=== PATIENT | female | born 1990 | race Caucasian/White ===

== ENCOUNTER 2023-10-19 17:11 | Emergency (ER) | payer OTHER, SELFPAY ==
--- NOTE | ~2023-10-19 | XR_ITS ---
EXAM: XR finger 3rd RT min 2V DATE: 10/19/2023 17:36 HISTORY: closed finger in door . COMPARISON: None available. FINDINGS: Normal mineralization. No fracture or dislocation. No lytic or blastic lesion. Joint space s are maintained. No erosion or periosteal change. Soft tissues within normal limits. IMPRESSION: No acute osseous finding in the right third digit. Reviewed, dictated and finalized at location K.
[2023-10-19 17:14] VITALS: BP 148/80; PULSE 95; RESP 20; TEMP 37.4; O2SAT 98
--- NOTE | 2023-10-19 17:22 | ED_ITS ---
HPI - General Adult General Chief complaint: Extremity Injury, Upper Stated complaint: finger inj Source: patient, RN notes reviewed and old records reviewed Mode of arrival: ambulatory Limitations: no limitations History of Present Illness HPI narrative: 33-year-old female presents to [facility] with complaint of right 3rd finger pain after shutting finger in closet door about 2-3 hours ago. Related Data Home Medications Medication Instructions Recorded Confirmed bupropion HCl 300 mg 24 hr tablet, mg PO 10/19/23 extended release etonogestrel 0.12 mg-ethinyl vag ring vaginal 10/19/23 estradiol 0.015 mg/24 hr vaginal ring (Haloette) Allergies Allergy/AdvReac Type Severity Reaction Status Date / Time No Known Allergies Allergy Verified 10/19/23 17:24 Review of Systems Constitutional: Constitutional: Reports no additional constitutional complaints, Denies body ache(s), Denies chills, Denies fatigue, Denies fever(s) and Denies headache(s) Eyes: Eyes: Reports no additional eye complaints and Denies blurry vision ENT: Reports system reviewed and no additional complaints, except as documented, Denies vertigo, Denies dizziness, Denies ear discharge, Denies otalgia, Denies facial pain, Denies headache(s), Denies nasal congestion, Denies nasal discharge, Denies sinus pain, Denies sinus pressure and Denies sore throat Cardiovascular: Cardiovascular: Reports no additional cardiovascular complaints, Denies chest pain, Denies chest pain at rest, Denies rapid heart rate and Denies dyspnea Respiratory: Respiratory: Reports no additional respiratory complaints, Denies chest congestion, Denies cough, Denies pain on inspiration, Denies pain with cough and Denies dyspnea Gastrointestinal: Gastrointestinal: Denies abdominal pain, Denies diarrhea, Denies nausea and Denies vomiting Musculoskeletal: Musculoskeletal: Reports as per HPI Comments: right 3rd finger pain distal joint Integumentary/Breasts: Skin/Breast: Denies rash Neurologic: Reports system reviewed and no additional complaints, except as documented, Denies vertigo, Denies dizziness and Denies headache(s) Endocrine: Endocrine: Denies fatigue PMFSH Comments At the time of my signature, I reviewed and agree with the nursing past medical, surgical, social, and family history. There is no relevant family history pertinent to the patient complaint. Exam Const: General: cooperative, healthy appearing, no acute distress and well nourished Nutritional Appearance: well nourished Orientation/consciousness: patient oriented x3 Limitations: no limitations HENMT: Head: normal to inspection and normocephalic Ears: external ears normal Face/Nose/Sinus: normal facial exam Face and sinus: normal facial exam Mouth: Yes Normal oral and palatal mucosa present, Yes oropharynx normal and Yes moist mucous membranes Eyes: General: appearance normal, both eyes and all related structures Sclera: sclerae normal Pupils: Equal, round and reactive pupils present Resp: Effort & Inspection: normal respiratory effort, able to speak in complete sentences, no audible wheezes, no cough, no respiratory distress and no retractions Skin: General skin exam: normal color and no rashes or lesions noted Neuro: General: patient oriented x3 Cranial nerves: Yes Equal, round and reactive pupils present Extrem: Right upper extremity: Extremity exam: right hand normal capillary refill, neuromotor exam normal, tenderness of the 3rd digit, swelling of the 3rd digit and ecchymosis of the 3rd digit Psych: Appearance: grossly normal Mental Status: mental status grossly normal Speech and movement: Normal speech and movement present Affect: normal affect Course Course Emergency Course: Patient is aware of diagnosis, understands and agrees to treatment plan.? Anticipatory guidance given.? Patient agrees to follow-up as directed and is aware of reasons to seek care at the emergency department. Some parts of this dictation were generated by voice recognition software and may contain typographical and/or grammatical inaccuracies. Level of Care: Express Care Visit Vital Signs Vital signs: Reviewed Medical Decision Making MDM Narrative Medical decision making narrative: patient with right finger pain with bruising after smashing finger in closet door. X-ray negative. will treat as contusion. Patient's x-ray showed Patient resting comfortably without signs or symptoms of acute distress, nontoxic appearing, vital signs stable. patient appropriate for discharge home and outpatient care, with instructions on close monitoring, close follow-up, and when to seek emergency care. Discharge instructions reviewed with patient, as well as provided in writing per nursing staff. The instructions also include specific and strict return/GO TO THE ER as well as f/u information. All questions have been answered, and the patient deny any further questions with discharge and discharge plan. Differential Diagnosis Differential Diagnosis: smash injury, contusion, fracture Medical Records Medical records reviewed: Yes I reviewed the external patient's medical records. Vital Signs Vital Signs: reviewed Lab Data Lab results reviewed: Yes I reviewed the patient's lab results. Imaging Data Attestation: I personally reviewed and interpreted this imaging study as follows: Radiologist's impression: EXAM:? XR finger 3rd RT min 2V DATE: 10/19/2023 17:36 HISTORY: closed finger in door . COMPARISON:? None available. FINDINGS:? Normal mineralization. No fracture or dislocation. No lytic or blastic lesion. Joint spaces are maintained. No erosion or periosteal change. Soft tissues within normal limits. IMPRESSION: No acute osseous finding in the right third di Discharge Plan Discharge Clinical Impression: Contusion of finger of right hand Qualifiers: Encounter type: initial encounter Finger: middle finger Damage to nail status: without damage Qualified Code(s): S60.031A - Contusion of right middle finger without damage to nail, initial encounter Patient Disposition: Home, Self-Care Condition: Stable Instructions: Contusion in Adults (ED) Additional Instructions: Rest Ice area for about 15-20 minutes every 2-3 hours Elevate Take OTC ibuprofen as directed for pain Follow up with your PCP in 7 days or as needed. Go to emergency room for worsening of conditions Patient Language: Uzbek Prescriptions: No Action etonogestrel-ethinyl estradiol [Haloette] 0.12-0.015 mg/24 hr ring VAGINAL bupropion HCl 300 mg tablet extended release 24 hr PO Follow-up/Referrals: Yifan,MD Ulysses [Primary Care Provider] - 1 Week ( express care follow-up) Time of Disposition: 17:39
== END 2023-10-19 17:55 | disposition home or self-care (01) ==
PROVIDERS: Emergency Provider Registered Nurse; PCP Internal Medicine Infectious Disease
DX: S60.031A Contusion of right middle finger without damage to nail, initial encounter (principal); X58.XXXA Exposure to other specified factors, initial encounter
CPT/HCPCS: 29130; 73140; 99213; G0463

== ENCOUNTER 2024-09-01 10:13 | Emergency (ER) | payer OTHER, SELFPAY ==
[2024-09-01 10:22] VITALS: BP 130/69; PULSE 85; RESP 20; TEMP 37.1; O2SAT 100
--- NOTE | 2024-09-01 10:48 | ED.URI ---
HPI - URI/Sore Throat General Chief Complaint: Upper Respiratory Infection Stated Complaint: sinus infection/bronchitis Time Seen by Provider: 09/01/24 10:40 Source: patient, RN notes reviewed and old records reviewed Mode of arrival: ambulatory Limitations: no limitations History of Present Illness HPI Narrative: 34-year-old female who presents to [facility] with complaints of 2 week duration of cough, nasal congestion, sore throat, and some ear pain. Patient reports that she has taken DayQuil and some NyQuil, Mucinex and has used her Albuterol inhaler she has for cat allergy. Patient reports no body aches or any recent fevers, chills or sweats noted. MD elicited complaint: cough, sore throat, rhinorrhea, nasal congestion and other (ear pain) Onset (ago): week(s) (2) Severity: moderate Treatments prior to arrival: other (mucinex) Related Data Home Medications ?Medication ?Instructions ?Recorded ?Confirmed ?Last Taken ?Type bupropion HCl 300 mg 24 hr tablet, mg PO 10/19/23 Unknown History extended release etonogestrel 0.12 mg-ethinyl vag ring vaginal 10/19/23 Unknown History estradiol 0.015 mg/24 hr vaginal ring (Haloette) Allergies Allergy/AdvReac Type Severity Reaction Status Date / Time No Known Allergies Allergy Verified 09/01/24 10:34 Review of Systems Review of Systems: CONSTITUTIONAL:Reports malaise,no chills, sweats, or fever. EYES: Denies visual changes, redness, or discharge. ENT: Reports rhinorrhea, congestion, sinus pain, otalgia and sore throat. CARDIOVASCULAR: Denies chest pain, palpitations, or edema. RESPIRATORY: Reports cough.? Denies dyspnea. GASTROINTESTINAL: Denies abdominal pain, nausea, vomiting, diarrhea SKIN: Denies rash or itching. MUSCULOSKELETAL: Denies myalgia. NEUROLOGIC: Reports frontal headache. 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 There is no relevant family history pertinent to the presenting complaint Exam Narrative: GENERAL: Well-appearing, well-nourished, and in no acute distress. HEAD: Normocephalic EYES: PERRLA, conjunctivae clear ENT: Nares clear, turbinates edematous and erythematous, clear discharge, sinus pressure and frontal headache,. Mucous membranes moist. TM pearly martin with dull light reflex bilaterally; no tragal tenderness. Oropharynx erythematous without lesions. Tonsils not enlarged and without exudate, no drooling, no hoarseness, no trismus, uvula midline.post nasal drainage noted NECK: Supple. No lymphadenopathy CHEST: Clear to auscultation, breath sounds equal. No wheezing, rhonchi, rales, or stridor. No respiratory distress, speaks in full sentences.dry cough SAO2 100% on room air HEART: Regular rate and rhythm. No murmur heard. SKIN: Warm, dry, no rash. NEURO: Alert and oriented x3. PSYCH: Normal mood and affect Course Course Emergency Course: Patient is aware of diagnosis, understands and agrees to treatment plan.? Anticipatory guidance given.? Patient agrees to follow-up as directed and is aware of reasons to seek care at the emergency department. Portions of this record may have been created with voice recognition software Level of Care: Express Care Visit Vital Signs Vital signs: Vital Signs Temperature 37.1 C 09/01/24 10:22 Pulse Rate 85 09/01/24 10:22 Respiratory Rate 20 09/01/24 10:22 Blood Pressure 130/69 09/01/24 10:22 Pulse Oximetry 100 09/01/24 10:22 Oxygen Delivery Room Air 09/01/24 10:22 Temperature 37.1 C 09/01/24 10:22 Pulse Rate 85 09/01/24 10:22 Respiratory Rate 20 09/01/24 10:22 Blood Pressure 130/69 09/01/24 10:22 Pulse Oximetry 100 09/01/24 10:22 Oxygen Delivery Room Air 09/01/24 10:22 Reviewed MDM - URI/Sore Throat MDM Narrative Medical decision making narrative: Differential diagnosis considered: Granados virus, strep pharyngitis, allergic rhinitis, upper respiratory tract infection, sinusitis, rhinosinusitis, nasopharyngitis. viral pharyngitis, otitis media, otitis externa, pneumonia, bronchitis, viral cough syndrome, viral syndrome, and influenza.? Exam findings show no acute concerns or changes; patient is non-toxic appearing and is in no distress.? Patient is appropriate for outpatient treatment and follow-up. Differential Diagnosis Differential diagnosis: Likely upper respiratory infection, otitis media, sinusitis, viral infection, pharyngitis and other (cough) Medical Records Attestation: I reviewed the patient's medical records. Lab Data Attestation: I reviewed the patient's lab results. Critical Care Time Critical Care Time Critical Care Time: No Discharge Plan Discharge Clinical Impression: Sinusitis Qualifiers: Sinusitis location: pansinusitis Chronicity: acute Recurrence: not specified as recurrent Qualified Code(s): J01.40 - Acute pansinusitis, unspecified Patient Disposition: Home, Self-Care Condition: Stable Instructions: Antibiotic Form Additional Instructions: Increase fluids especially juices and water [id number]-wrgbygb cough and cold medicine of your choice for your symptoms Zyrtec Claritin or Precious daily and He may continue Mucinex make sure you are drinking plenty of fluids while taking this medication Recommend Delsym or Robitussin cough syrup Tylenol ibuprofen for any fever pain heat to the face 20-30 minutes 4-6 times a day for pain Salt water gargles, throat lozenges or throat sprays as desired Antibiotic as directed--finished the medication If your symptoms persist, change or worsen significantly before you can contact your personal physician then please, without delay, go to the emergency department for further evaluation. Follow-up with PCP in 7-10 days or sooner if needed Follow up with PCP soon in regards to your blood pressure which is elevated above threshold for referral. Blood pressure above 120/80 may indicate pre-hypertension.130/69 Patient Language: Maori Prescriptions: New amoxicillin-pot clavulanate 875-125 mg tablet 1 tablet PO Q12H Qty: 20 0RF Rx Instructions: Take with food recommend taking a probiotic or eating Activia yogurt while on this medication No Action etonogestrel-ethinyl estradiol [Haloette] 0.12-0.015 mg/24 hr ring VAGINAL bupropion HCl 300 mg tablet extended release 24 hr PO Follow-up/Referrals: Yifan,MD Ulysses [Primary Care Provider] - Time of Disposition: 10:57 Quality Dillon Coma Scale Eyes: Open Verbal: Oriented and Alert Motor: Follows Commands Elizabeth Coma Total Score: 15
== END 2024-09-01 11:00 | disposition home or self-care (01) ==
PROVIDERS: Emergency Provider Registered Nurse; PCP Internal Medicine Infectious Disease
DX: J01.40 Acute pansinusitis, unspecified (principal); F41.8 Other specified anxiety disorders; F90.9 Attention-deficit hyperactivity disorder, unspecified type; F17.290 Nicotine dependence, other tobacco product, uncomplicated
CPT/HCPCS: 99213; G0463

== ENCOUNTER 2024-09-16 11:38 | Emergency (ER) | payer OTHER, SELFPAY ==
[2024-09-16 11:44] VITALS: BP 146/72; PULSE 104; RESP 18; TEMP 36.8; O2SAT 99
[2024-09-16 12:14] LABS: EDSTREPNEGPOS1 Positive (Negative)
--- NOTE | 2024-09-16 12:34 | ED_ITS ---
HPI - URI/Sore Throat General Chief Complaint: Upper Respiratory Infection Stated Complaint: strep throat Time Seen by Provider: 09/16/24 11:55 Source: patient, RN notes reviewed and old records reviewed Mode of arrival: ambulatory Limitations: no limitations History of Present Illness HPI Narrative: 34 year old female presents to [facility] with complaints of sore throat which started yesterday when awoke with fever and headaches. Patient states that she just completed Augmentin for a sinus infection past Saturday but has been exposed to strep by her brother. Patient reports that she has taken some Ibuprofen for her discomfort. MD elicited complaint: fever, sore throat and other (headache) Pertinent past history: other (recent sinus infection) Onset (ago): day(s) (day 2 of symptoms) Consistency: constant Pain scale (0-10): 8 Description of mucous: clear Able to tolerate fluids by mouth: Yes Treatments prior to arrival: ibuprofen Related Data Home Medications ?Medication ?Instructions ?Recorded ?Confirmed ?Last Taken ?Type bupropion HCl 300 mg 24 hr tablet, mg PO 10/19/23 Unknown History extended release etonogestrel 0.12 mg-ethinyl vag ring vaginal 10/19/23 Unknown History estradiol 0.015 mg/24 hr vaginal ring (Haloette) Allergies Allergy/AdvReac Type Severity Reaction Status Date / Time No Known Allergies Allergy Verified 09/16/24 12:11 Review of Systems Review of Systems: CONSTITUTIONAL: Reports malaise, positive for chills, sweats, or fever. EYES: Denies visual changes, redness, or discharge. ENT: Reports rhinorrhea, congestion,no sinus pain,no otalgia and positive for sore throat. CARDIOVASCULAR: Denies chest pain, palpitations, or edema. RESPIRATORY: Reports no cough.? Denies dyspnea. GASTROINTESTINAL: Denies abdominal pain, nausea, vomiting, diarrhea SKIN: Denies rash or itching. MUSCULOSKELETAL: Denies myalgia. NEUROLOGIC: Reports some headache. 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 There is no relevant family history pertinent to the presenting complaint Exam Narrative: GENERAL: Well-appearing, well-nourished, and in no acute distress. HEAD: Normocephalic EYES: PERRLA, conjunctivae clear ENT: Nares clear, turbinates edematous and erythematous, clear discharge. Mucous membranes moist. TM pearly martin with dull light reflex bilaterally; no tragal tenderness. Oropharynx erythematous without lesions. Tonsils red swollen enlarged and without exudate, no drooling, no hoarseness, no trismus, uvula midline, painful swallowing. NECK: Supple. No lymphadenopathy CHEST: Clear to auscultation, breath sounds equal. No wheezing, rhonchi, rales, or stridor. No respiratory distress, speaks in full sentences. SAO2 99% on room air HEART: Regular rate and rhythm. No murmur heard. SKIN: Warm, dry, no rash. NEURO: Alert and oriented x3. PSYCH: Normal mood and affect Course Course Emergency Course: Patient is aware of diagnosis, understands and agrees to treatment plan.? Anticipatory guidance given.? Patient agrees to follow-up as directed and is aware of reasons to seek care at the emergency department. Portions of this record may have been created with voice recognition software Level of Care: Express Care Visit Vital Signs Vital signs: Vital Signs Temperature 36.8 C 09/16/24 11:44 Pulse Rate 104 H 09/16/24 11:44 Respiratory Rate 18 09/16/24 11:44 Blood Pressure 146/72 H 09/16/24 11:44 Pulse Oximetry 99 09/16/24 11:44 Oxygen Delivery Room Air 09/16/24 11:44 Temperature 36.8 C 09/16/24 11:44 Pulse Rate 104 H 09/16/24 11:44 Respiratory Rate 18 09/16/24 11:44 Blood Pressure 146/72 H 09/16/24 11:44 Pulse Oximetry 99 09/16/24 11:44 Oxygen Delivery Room Air 09/16/24 11:44 Reviewed MDM - URI/Sore Throat MDM Narrative Medical decision making narrative: Differential diagnosis considered: Granados virus, strep pharyngitis, allergic rhinitis, upper respiratory tract infection, sinusitis, rhinosinusitis, nasopharyngitis. viral pharyngitis, otitis media, otitis externa, pneumonia, bronchitis, viral cough syndrome, viral syndrome, and influenza.? Exam findings show no acute concerns or changes; patient is non-toxic appearing and is in no distress.? Patient is appropriate for outpatient treatment and follow-up. Differential Diagnosis Differential diagnosis: Likely upper respiratory infection, pharyngitis and other (strep pharyngitis) Medical Records Attestation: I reviewed the patient's medical records. Lab Data Attestation: I reviewed the patient's lab results. Lab results narrative: strep screen positive Labs: Lab Results 09/16/24 Range/Units 12:13 POC Grp A Strep Screen Positive (Negative) reviewed Critical Care Time Critical Care Time Critical Care Time: No Discharge Plan Discharge Clinical Impression: Strep pharyngitis Patient Disposition: Home, Self-Care Condition: Stable Instructions: Antibiotic Form, Strep Throat (ED) Additional Instructions: You tested positive for Group A strep . Take the entire course of antibiotics. Throw away your current toothbrush and begin using a new toothbrush in 48 hours in order to prevent re-infection. Sanitize all reusable water bottles . Do not share items with others. Salt water gargles may alleviate some of the throat discomfort. You can take Tylenol or ibuprofen per the package instructions for pain/fever. If your symptoms persist, change or worsen significantly before you can contact your personal physician then please, without delay, go to the emergency department for further evaluation. Follow-up with PCP in 7-10 days or sooner if needed Follow up with PCP soon in regards to your blood pressure which is elevated above threshold for referral. Blood pressure above 120/80 may indicate pre- hypertension. 146/72 Patient Language: Australian Prescriptions: New cefdinir 300 mg capsule 300 mg PO Q12H 10 Days Qty: 20 0RF Rx Instructions: take probiotics while taking this medication No Action etonogestrel-ethinyl estradiol [Haloette] 0.12-0.015 mg/24 hr ring VAGINAL bupropion HCl 300 mg tablet extended release 24 hr PO Follow-up/Referrals: Yifan,MD Ulysses [Primary Care Provider] - Time of Disposition: 12:41 Quality Elizabeth Coma Scale Eyes: Open Verbal: Oriented and Alert Motor: Follows Commands Elizabeth Coma Total Score: 15
--- OUTSIDE RECORDS SUMMARY | 2024-09-16 13:30 | XMS_ITS | Continuity of Care Document ---
Author Organization 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 [facility] [place], [place], [id number], [place]. tel:[phone] Family History Family Member Type Diagnosis Age At Onset No Information Payers Payer name Insurance type Covered constitution party ID Authoriza timarcelo(s) [employer] Plan CI [id number] Social History Type Description Quantity Date Captured Comments Sex Female Smoking Status No Information Chief Complaint And Reason For Visit No Information Reason For Referral Reason For Referral No Information History Of Present Illness Encounter Date Complaint History Of Prese nt Illness No Information Functional Status Date Functional Assessmen t No Information Instructions Date Instruction Additional Infor mation No Information Assessments Type Assessment Date No Information Patient Care Teams Name Effective Dates (start - stop) Status Members No Information
--- OUTSIDE RECORDS SUMMARY | 2024-09-16 13:30 | XMS_ITS | Continuity of Care Document ---
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 [facility] [place], [place], [id number], [place]. tel:[phone] Family History Family Member Type Diagnosis Age At Onset No Information Payers Payer name Insurance type Covered libertarian ID Authoriza timarcelo(s) [employer] Vision Plan CI [id number] Social History Type Description Quantity Date Captured [...]
--- OUTSIDE RECORDS SUMMARY | 2024-09-16 13:30 | XMS_ITS | Clinical Summary ---
Author Organization [facility] [address] Address [address] [place] [address] Phone Care Team Providers Care Reproduction Production Manager Name Role Phone Ulysses Saha MD Unavailable [phone] Ulysses Saha MD Primary Care Provider [phone] Allergies Active Allergy Reactions Criticality Noted Date Comments Latex Other (See comments) Low 04/02/2019 Vaginitis/UTI Vaginitis/UTI Medications etonogestreL-ethi nyl estradioL (NUVARING, ELURYNG) 0.12-0.015 mg/24 hr vaginal ringIndications:E ncounter for surveillance of vaginal ring hormonal contraceptive device Insert vaginally and leave in place for 3 consecutive weeks, then remove for 1 week. 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 UPTODATE LABS WERE REVIEWED FLY CHRONIC AND STABLE SKIN ASSESSMENT NO SUSPICIOUS LESIONS BMI OF 40 CHRONIC / DIETARY COUNSELLING NO SIBSTANCE 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 Mild intermittent asthma without complication Assessment & Plan (10/28/2023 1:38 PM CDT): WELL CONTROLLED WITH ALBUTEROL PRN Hyperglycemia 10/25/2023 Assessment & Plan (10/28/2023 1:38 PM CDT): HBAIC IN SIX MONTH DISCUSSED LOW CARB DIET HYPERGLYCEMIA NOT CONTROLLED HENCE HBAIC NEXT VISIT Severe obesity (BMI >= 40) 03/26/2023 Generalized anxiety disorder 03/26/2023 Assessment & Plan (10/25/2023 3:29 PM CDT): STABLE DOING OK ON WELLBUTRIN CONTINUE CURRENT MEDS Encounters Date Type Department Care Team Description 08/19/2024 Results Follow-Up [facility] [address] [place] [address] Sera Aranda MD 08/17/2024 3:40 PM FILM WAXER [facility] [address] [place] [address] Screening examination for venereal disease 08/17/2024 3:30 PM FILM WAXER - 08/17/2024 11:59 PM FILM WAXER Hospital Encounter [address] [address] Screening examination for venereal disease Discharge Disposition: Discharge to home or self care 08/17/2024 2:45 PM FILM WAXER Office Visit [facility] [address] [place] [address] Sera Aranda MD Screening examination for venereal disease (Primary Dx) from Last 3 Months Immunizations Immunization Administration Dates Next Due DT 02/06/2002 DTaP 02/06/1993, 0,1988,05/21,1988 Hep A, Ped Unspecified 11/21/2005 Hep B, Adolescent or Pediatric 10/11/1998,1997,1988 HiB 02/10/1990 Influenza, Quadrivalent, Spl it, Preservative Free, Intramuscular 04/25/2020 Influenza, Unspecified 04/17/2024(Deferr ed: Patient Refused),04/22/2023(Deferred: Patient Refused),04/22/2023(Deferred: Patient Refused) MMR 02/06/1993,04/26/1989 Meningococcal Polysaccharide (Menomune) 02/07/2011 OPV 02/06/1993, 0,1988,05/21,1988 Td, adsorbed 02/06/2002 Tdap 05/03/2022,02/14/2017,11/21/2005 Medical History Medical History Date Comments Scoliosis Slipped rib syndrome Seasonal affective disorder Adhd Generalized anxiety disorder Family History Medical History Relation Name Comments Breast cancer Maternal Great-Grandmother Uterine cancer Mother's Sister ovarian v. uterine (?) Relation Name Status Comments Maternal Great-Grandmother Mother's Sister Social History Tobacco Use Types Packs/Day Years Used Date Smoking Tobacco: Former Cigarettes 0 11/2017 - 05/2018 Vaping Smokeless Tobacco: Never Tobacco Cessation:Counseling Given: Not Answered PHQ-2 Answer Date Recorded PHQ-2 Total Score (If total score is 3 or more points, staff should administer the PHQ-9) 0 04/17/2024 Comments No Sex and Gender Information Value Date Recorded Sex Assigned at Not on file Legal Sex Female 1:44 AM FILM WAXER Gender Identity Female 07/06/2024 10:02 AM FILM WAXER Sexual Orientation Not on file Occupation Industry Job Start Date Job End Date Not on file Not on file Not on file Not on file Obstetrics History Para Term AB IAB SAB Ectopic Multiple Livin g Live Births 0 0 0 0 0 0 0 0 0 0 0 Last Filed Vital Signs Vital Sign Reading Time Taken Comments Blood Pressure 130/80 08/17/2024 2:50 PM FILM WAXER Pulse 73 04/17/2024 2:30 PM CDT Temperature 36.3 C (97.3 F) 04/17/2024 2:30 PM CDT Respiratory Rate 16 04/17/2024 2:30 PM CDT Oxygen Saturation 98% 04/17/2024 2:30 PM CDT Inhaled Oxygen Concentration - - Weight 108 kg (238 lb) 08/17/2024 2:50 PM FILM WAXER Height 162.6 cm (5' 4 ) 04/17/2024 2:30 PM CDT Body Mass Index 40.85 04/17/2024 2:30 PM CDT Plan of Treatment Health Maintenance Due Date Last Done Comments Varicella Vaccines (1 of 2 - 13+ 2-dose series) 01/23/2001 Pneumococcal vaccine <65 (1 of 2 - PCV) 01/23/2007 Covid-19 Vaccine (3 - season) 2024 12/16/2020, 11/25/2020 Influenza Vaccine (#1) 2024 04/25/2020 Cervical Cancer Screening 03/20/2024 03/20/2023, Depression Screening 04/17/2025 04/17/2024, 2023, 2023 Regular Well Visit/Exam 18-64 04/17/2025 04/17/2024, 04/01/2024, 03/20/2023, Additional history exists DTaP/Tdap/Td Vaccine (11 - Td or Tdap) 05/03/2032 05/03/2022, 02/14/2017, 11/21/2005, Additional history exists Hepatitis B Screening Completed 10/11/1998 , 03/28/1998, 1988 Hepatitis C Screening Completed 08/17/2024 , 04/01/2024, 2023 HPV Vaccines Aged Out No longer eligi ble based on patient's age to complete this topic Procedures Procedure Name Priority Date/Time Associated Diagnosis Comments VAGINITIS PANEL Routine 08/17/2024 3:30 PM FILM WAXER Screening examination for venereal disease N. GONORRHOEAE/C. TRACHOMATIS AMPLIFICATION Routine 08/17/2024 3:30 PM FILM WAXER Screening examination for venereal disease HEPATITIS B SURFACE ANTIGEN Routine 08/17/2024 3:14 PM FILM WAXER Screening examination for venereal disease HEPATITIS C ANTIBODY Routine 08/17/2024 3:14 PM FILM WAXER Screening examination for venereal disease RPR Routine 08/17/2024 3:14 PM FILM WAXER Screening examination for venereal disease HIV 1/2 ANTIBODY PLUS P24 ANTIGEN Routine 08/17/2024 3:14 PM FILM WAXER Screening examination for venereal disease HIGH RISK HPV DNA DETECTION WITH GENOTYPING Routine 03/20/2023 3:36 PM CDT Screening for malignant neoplasm of the cervix from Last 3 Months or Most Recently Relevant to Health Maintenance Results * N. gonorrhoeae/C. trachomatis Amplification Endocervical (08/17/2024 3:30 PM FILM WAXER) Pathologist [facility] C. trachomatis Not Detected [facility] Comment:Testing performed by : [facility], [address] [place] [address]., [id number] N. gonorrhoeae Not Detected AMANDA LEIVA Comment: Interpretive Data This assay detects Chlamydia trachomatis and Neisseria gonorrhoeae by nucleic acid amplification testing (NAAT). This assay has been cleared by the [place] Food and Drug administration. The performance characteristics of this test have been verified by the [facility] Molecular Infectious Disease laboratory. The performance characteristics of this test have not been evaluated in individuals less than 14 years of age. Current Interpretive Data was last revised on 2023. Testing performed by: [facility], [address] [place] [address]., [id number] Endocervical (None) 08/17/19 3:30 PM FILM WAXER 08/18/2024 10:48 AM FILM WAXER Sera Aranda MD LAB MICROBIOLOGY - [facility] ORDERABLES Final Result AMANDA LEIVA [address] Department [place] [address] [facility] * Vaginitis panel Vaginal (08/17/2024 3:30 PM FILM WAXER) Pathologist [facility] Shara DNA probe Not Detected Not Detected Comment:Testing performed by : [facility], [address] [place] [address]., [id number] Gardnerella DNA probe Not Detected Not Detected AMANDA LEIVA Comment:Testing performed by : [facility], [address] [place] [address]., [id number] Trichomonas DNA probe Not Detected Not Detected AMANDA LEIVA Comment: Interpretive Data Testing performed by [facility] via Affirm VPIII Microbial Identification Test, a DNA probe test for use in the detection and identification of Shara species, Gardnerella vaginalis and Trichomonas vaginalis nucleic acid in vaginal fluid specimens from patients with symptoms of vaginitis/vaginosis. Negative results for these tests suggest the patient does not have candidiasis, bacterial vaginosis and/or trichomoniasis when consistent with clinical signs and symptoms. Current interpretive data was last revised on 2020. Testing performed by: [facility], [address] [place] [address]., [id number] Vaginal 08/17/2024 3:30 PM FILM WAXER 08/18/2024 1:04 PM FILM WAXER Sera Aranda MD LAB MICROBIOLOGY - [facility] ORDERABLES Final Result AMANDA [address] Department [place] [address] * HIV 1/2 Antibody plus p24 Antigen Blood (08/17/2024 3:14 PM FILM WAXER) [facility] HIV 1/2 ab + p24 ag Nonreactive Nonreactive Comment: Nonreactive for HIV-1 antigen and HIV-1/HIV-2 antibodies. No laboratory evidence of HIV infection. If acute HIV infection is suspected, consider testing for HIV-1 RNA. Testing performed by: [facility], [address] [place] [address]., [id number] Blood 08/17/2024 3:14 PM FILM WAXER 08/17/2024 6:57 PM FILM WAXER Sera Aranda MD LAB MICROBIOLOGY - [facility] ORDERABLES Final Result Performing Organization Address City/[facility] Co de Phone Number AMANDA LEIVA [address] [place] [address] * Hepatitis C antibody Blood (08/17/2024 3:14 PM FILM WAXER) [facility] Hep C Ab Nonreactive Nonreactive Comment: Interpretive Data Nonreactive: Antibodies to HCV not detected. Does NOT exclude the possibility of recent exposure to HCV. Equivocal: Equivocal for HCV antibodies. Supplemental molecular testing will be automatically performed to determine infection status in accordance with current CDC screening recommendations. Reactive: Positive for HCV antibodies. This may represent current or past HCV infection. Supplemental molecular testing will be automatically performed to determine current infection status in accordance with current CDC screening recommendations. Interpretive data was last revised on 2019. Testing performed by: [address] [address] Blood 08/17/2024 3:14 PM FILM WAXER 08/17/2024 6:57 PM FILM WAXER us Sera Aranda MD LAB MICROBIOLOGY - [facility] ORDERABLES Final Result Performing Organization Address [facility] Co de Phone Number AMANDA LEIVA [phone] [address] [facility] [place] [address] * RPR Blood (08/17/2024 3:14 PM FILM WAXER) [facility] RPR Nonreactive Nonreactive Comment:Testing performed by : [facility], [address] [place] [address]., [id number] Blood 08/17/2024 3:14 PM FILM WAXER 08/17/2024 6:57 PM FILM WAXER Sera Aranda MD LAB MICROBIOLOGY - [facility]ERAL ORDERABLES Final Result Performing Organization Address City/[facility]/ZIP Co de Phone Number AMANDA LEIVA [address] [place] [address] * Hepatitis B Surface Antigen Blood (08/17/2024 3:14 PM FILM WAXER) [facility] HepBsAg Nonreactive Nonreactive Comment:Testing performed by : [facility], [address] [place]., [address] Blood 08/17/2024 3:14 PM FILM WAXER 08/17/2024 6:57 PM FILM WAXER Sera Aranda MD LAB MICROBIOLOGY - NERAL ORDERABLES Final Result [place] [address] [facility] Department of Laboratories [place], [place] [id number] * High Risk HPV DNA Detection with Genotyping (Molecular component) (03/20/2023 3:36 PM CDT) [facility] HPV HR 16 Not Detected Not Detected AMANDA Comment:Testing performed by : [facility], [address] [place]., [address] HPV HR 18 Not Detected Not Detected AMANDA Comment:Testing performed by : [facility], [address] [place]., [address] HPV HR Non 16/18 Not Detected Not Detected AMANDA Comment: Interpretive Data Nucleic acid amplification for detection of high-risk Human Papilloma virus (HPV) is performed by the Citlali Dwain 6800 HPV test. This assay specifically detects HPV-16 and HPV-18 genotypes. The following HPV genotypes are detected as high-risk HPV: HPV-31, 33, 35, ,39, 45, 51, 52, 56, 58, 59, 66, and 68. This assay has been approved by the [place] Food and Drug Administration for detection of HPV in cervical specimens collected by a physician using an endocervical brush/spatula or cervical broom and placed in the ThinPrep Pap Test PreservCyt collection containers. The performance characteristics of this test have been verified by the [facility] Molecular Infectious Disease laboratory. Correlate with separately reported cytology results, as applicable. Interpretive data last revised 22 Testing performed by: [facility], [address] [place]., [address] Endocervical 03/20/2023 3:36 PM CDT 03/21/2023 3:36 PM CDT Heraclio PATEL CH - 03/22/2023 2:45 AM CDT Clinical history and diagnosis->DX Z12.4 Testing type->Screening Last menstrual period (date if known)->02/27/23 Previous negative PAP?->Yes Sera Aranda MD LAB BODY FLUIDS AND S TOOLS ORDERABLES Final Result AMANDA [address] Department [place] [address] from Last 3 Months or Most Recently Relevant to Health Maintenance Insurance [employer] Care Teams Reproduction Production Manager Relationship Specialty Start Date End Date Ulysses Saha MD [address] [place] [id number] PCP - General Internal Medicine 01/24/23 Ulysses Saha MD [address] [place] [id number] 03/10/22
--- OUTSIDE RECORDS SUMMARY | 2024-09-16 13:30 | XMS_ITS | Referral Summary ---
Author Organization [facility] [place] [address] [place] [address] Phone Care Team Providers Care Privacy Director Name Role Phone Ulysses Saha MD Unavailable [phone] Ulysses Saha MD Primary Care Provider [phone]- [phone] Encounters Date Type Department Care Team Description 08/19/2024 Results Follow-Up [facility] [address] [place] [address] Sera Aranda MD 08/17/2024 3:30 PM POLYGRAPH TECHNICIAN - 08/17/2024 11:59 PM POLYGRAPH TECHNICIAN [place] [address] Screening examination for venereal disease Discharge Disposition: Discharge to home or self care 08/17/2024 3:40 PM POLYGRAPH TECHNICIAN Lab [facility] [address] [place] [id number] Screening examination for venereal disease 08/17/2024 2:45 PM POLYGRAPH TECHNICIAN Office Visit [facility] [address] [place] [address] Sera Aranda MD Screening examination for venereal disease (Primary Dx) from Last 3 Months Allergies Active Allergy Reactions Criticality Noted Date [...] WERE REVIEWED 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 UPTODATE LABS WERE REVIEWED FLY CHRONIC AND [...] DOING OK ON WELLBUTRIN CONTINUE CURRENT MEDS Immunizations Immunization Administration Dates Next Due DT 02/06/2002 DTaP 02/06/1993, 0,1988,05/21,1988 Hep A, Ped Unspecified 11/21/2005 Hep B, Adolescent or Pediatric 10/11/1998,1997,1988 HiB 02/10/1990 Influenza, Quadrivalent, Spl it, Preservative Free, Intramuscular 04/25/2020 Influenza, Unspecified 04/17/2024(Deferr ed: Patient Refused),04/22/2023(Deferred: Patient Refused),04/22/2023(Deferred: Patient Refused) MMR 02/06/1993,04/26/1989 Meningococcal Polysaccharide (Menomune) 02/07/2011 OPV 02/06/1993, 0,1988,05/21,1988 Td, adsorbed 02/06/2002 Tdap 05/03/2022,02/14/2017,11/21/2005 Social History Tobacco Use Types Packs/Day Years [...] on file Legal Sex Female 1:44 AM POLYGRAPH TECHNICIAN Gender Identity Female 07/06/2024 10:02 AM POLYGRAPH TECHNICIAN Sexual Orientation Not on file Occupation Industry Job Start Date Job End Date Not on file Not on file Not on file Not on file Last Filed Vital Signs Vital Sign Reading Time Taken Comments Blood Pressure 130/80 08/17/2024 2:50 PM POLYGRAPH TECHNICIAN Pulse 73 04/17/2024 2:30 PM CDT Temperature 36.3 C (97.3 F) 04/17/2024 2:30 PM CDT Respiratory Rate 16 04/17/2024 2:30 PM CDT Oxygen Saturation 98% 04/17/2024 2:30 PM CDT Inhaled Oxygen Concentration - - Weight 108 kg (238 lb) 08/17/2024 2:50 PM POLYGRAPH TECHNICIAN Height 162.6 cm (5' 4 ) 04/17/2024 2:30 PM CDT Body Mass Index 40.85 04/17/2024 2:30 PM CDT Plan of Treatment Not on file Procedures Procedure Name Priority Date/Time Associated Diagnosis Comments VAGINITIS PANEL Routine 08/17/2024 3:30 PM POLYGRAPH TECHNICIAN Screening examination for venereal disease N. GONORRHOEAE/C. TRACHOMATIS AMPLIFICATION Routine 08/17/2024 3:30 PM POLYGRAPH TECHNICIAN Screening examination for venereal disease HEPATITIS B SURFACE ANTIGEN Routine 08/17/2024 3:14 PM POLYGRAPH TECHNICIAN Screening examination for venereal disease HEPATITIS C ANTIBODY Routine 08/17/2024 3:14 PM POLYGRAPH TECHNICIAN Screening examination for venereal disease RPR Routine 08/17/2024 3:14 PM POLYGRAPH TECHNICIAN Screening examination for venereal disease HIV 1/2 ANTIBODY PLUS P24 ANTIGEN Routine 08/17/2024 3:14 PM POLYGRAPH TECHNICIAN Screening examination for venereal disease HIGH RISK HPV DNA DETECTION WITH GENOTYPING Routine 03/20/2023 3:36 PM CDT Screening for malignant neoplasm of the cervix from Last 3 Months or Most Recently Relevant to Health Maintenance Results * N. gonorrhoeae/C. trachomatis Amplification Endocervical (08/17/2024 3:30 PM POLYGRAPH TECHNICIAN) Pathologist [facility] C. trachomatis Not Detected [facility] Comment:Testing performed by : [facility], [address] [facility] [place]., [address] N. gonorrhoeae Not Detected AMANDA LEIVA Comment: Interpretive Data This assay detects Chlamydia trachomatis and Neisseria gonorrhoeae by nucleic acid amplification testing (NAAT). This assay has been cleared by the [place] Food and Drug administration. The performance characteristics of this test have been verified by the [facility] Molecular Infectious Disease laboratory. The performance characteristics of this test have not been evaluated in individuals less than 14 years of age. Current Interpretive Data was last revised on 2023. Testing performed by: [facility], [address] [facility] [place]., [address] Endocervical (None) 08/17/19 3:30 PM POLYGRAPH TECHNICIAN 08/18/2024 10:48 AM POLYGRAPH TECHNICIAN Sera Aranda MD LAB MICROBIOLOGY - GE NERAL ORDERABLES Final Result Performing Organization Address [facility] Co de Phone Number AMANDA LEIVA [address] [place] [address] [facility] * Vaginitis panel Vaginal (08/17/2024 3:30 PM POLYGRAPH TECHNICIAN) [facility] Shara DNA probe Not Detected Not Detected Comment:Testing performed by : [facility], [address] [place] [address]., [id number] Gardnerella DNA probe Not Detected Not Detected AMANDA Comment:Testing performed by : [facility], [address] [place] [address]., [id number] Trichomonas DNA probe Not Detected Not Detected AMANDA Comment: Interpretive Data Testing performed by [facility] via [employer] VPIII Microbial Identification Test, a DNA probe [...] on 2020. Testing performed by: [facility], [address] [place] [address]., [id number] Vaginal 08/17/2024 3:30 PM POLYGRAPH TECHNICIAN 08/18/2024 1:04 PM POLYGRAPH TECHNICIAN Sera Aranda MD LAB MICROBIOLOGY - GE NERAL ORDERABLES Final Result Performing Organization Address City/[facility] Co de Phone Number AMANDA LEIVA [address] [place] [address] * HIV 1/2 Antibody plus p24 Antigen Blood (08/17/2024 3:14 PM POLYGRAPH TECHNICIAN) HIV 1/2 ab + p24 ag Nonreactive Nonreactive Comment: Nonreactive for HIV-1 antigen and HIV-1/HIV-2 antibodies. No laboratory evidence of HIV infection. If acute HIV infection is suspected, consider testing for HIV-1 RNA. Testing performed by: [facility], [address] [place] [address]., [address] Blood 08/17/2024 3:14 PM POLYGRAPH TECHNICIAN 08/17/2024 6:57 PM POLYGRAPH TECHNICIAN Sera Aranda MD LAB MICROBIOLOGY - GE NERAL ORDERABLES Final Result Performing Organization Address [facility] Co de Phone Number AMANDA [phone] [place] [address] * Hepatitis C antibody Blood (08/17/2024 3:14 PM POLYGRAPH TECHNICIAN) Pathologist [facility] Hep C Ab Nonreactive Nonreactive Comment: Interpretive [...] last revised on 2019. Testing performed by: [address] [address] Blood 08/17/2024 3:14 PM POLYGRAPH TECHNICIAN 08/17/2024 6:57 PM POLYGRAPH TECHNICIAN Sera Aranda MD LAB MICROBIOLOGY - PharmAbcine NERAL ORDERABLES Final Result Performing Organization Address [facility] Co de Phone Number AMANDA LEIVA [address] [place] [address] * RPR Blood (08/17/2024 3:14 PM POLYGRAPH TECHNICIAN) Pathologist [facility] RPR Nonreactive Nonreactive Comment:Testing performed by : [address] [place] [address] Blood 08/17/2024 3:14 PM POLYGRAPH TECHNICIAN 08/17/2024 6:57 PM POLYGRAPH TECHNICIAN Sera Aranda MD LAB MICROBIOLOGY - GE NERAL ORDERABLES Final Result Performing Organization Address City/[facility]/ZIP Co de Phone Number AMANDA [phone] [facility] [place] [address] * Hepatitis B Surface Antigen Blood (08/17/2024 3:14 PM POLYGRAPH TECHNICIAN) [facility] HepBsAg Nonreactive Nonreactive Comment:Testing performed by : [facility], [address] [place] [address], [address] Blood 08/17/2024 3:14 PM POLYGRAPH TECHNICIAN 08/17/2024 6:57 PM POLYGRAPH TECHNICIAN Sera Aranda MD LAB MICROBIOLOGY - GE NERAL ORDERABLES Final Result Performing Organization Address [facility] Co de Phone Number AMANDA [address] [facility] [place] [address] * High Risk HPV DNA Detection with Genotyping (Molecular component) (03/20/2023 3:36 PM CDT) [facility] HPV HR 16 Not Detected Not Detected AMANDA Comment:Testing performed by : [facility], [address] [facility] [place] [address] HPV HR 18 Not Detected Not Detected AMANDA Comment:Testing performed by : [facility], [address] [facility] [place]., [address] HPV HR Non 16/18 Not Detected Not [...] this test have been verified by the [facility] Molecular Infectious Disease laboratory. Correlate with separately reported cytology results, as applicable. Interpretive data last revised 22 Testing performed by: [facility], [address] [place]., [address] Endocervical 03/20/2023 3:36 PM CDT 03/21/2023 3:36 PM CDT [facility] AMANDA - 03/22/2023 2:45 AM CDT Clinical history and diagnosis->DX Z12.4 Testing type->Screening Last menstrual period (date if known)->02/27/23 Previous negative PAP?->Yes Sera Aranda MD LAB BODY FLUIDS AND S TOOLS ORDERABLES Final Result Performing Organization Address City/State/[facility] Co de Phone Number AMANDA [phone] [address] [place] [address] from Last 3 Months or Most Recently Relevant to Health Maintenance Insurance [facility]PPO Address: [facility] [id number] [place] [address] [employer] Care Teams Privacy Director Relationship Specialty Start Date End Date Ulysses Saha MD [address] [place] [address] PCP - General Internal Medicine 01/24/23 Ulysses Saha MD [address] [place] [address] 03/10/22
--- OUTSIDE RECORDS SUMMARY | 2024-09-16 13:30 | XMS_ITS | Clinical Summary ---
Author Organization [facility] Address [address] [place]: [place] [address] Care Team Providers Care School Patrol Name Role Phone Volodymyr Lara MD Primary Care Provider [phone] Allergies Active Allergy Reactions Criticality Noted Date Comments Latex Other (See Comments) 04/02/2019 Vaginitis/UTI Medications albuterol HFA 90 mcg inhalerIndication s:Chest pain, unspecified type Take 2 Puffs by inhalation every 6 hours as needed for Shortness of Breath. 8.5 Gram 1 0 Active fluticasone propionate (FLONASE) 50 mcg/spray [place], Suspension nasal inhaler Administer 2 Sprays in each nostril daily. 16 Gram 0 9 Active sertraline (ZOLOFT) 25 mg tablet TAKE 1 TABLET(25 MG) BY MOUTH DAILY 90 Tablet 1 3 Active etonogestrel-Ethi nyl Estradiol (Haloette) 0.12-0.015 mg/24 hr RingIndications:E ncounter for surveillance of vaginal ring hormonal contraceptive device INSERT 1 RING IN THE VAGINA X 3 WEEKS, REMOVE X 1 WEEK 3 Ring 3 4 Active etonogestrel-Ethi nyl Estradiol 0.12-0.015 mg/24 hr Ring Insert 1 Ring. vaginally. 2 Active Active Problems Problem Noted Date Diagnosed Date Prediabetes 05/18/2020 Immunizations Immunization Administration Dates Next Due (ADACEL/BOOSTRIX)(10 YR UP) TDAP VACCINE, 0.5ML, IM 05/03/2022 INFLUENZA VACCINE QUADRIVALENT 6 MOS UP PF IM Family History Medical History Relation Name Comments Other Father gout Diabetes Maternal Aunt Ovarian Cancer Maternal Aunt alive and we ll Diabetes Maternal Grandmother Diabetes Maternal Uncle Diabetes Mother Breast Cancer Neg Hx Colon Cancer Neg Hx Relation Name Status Comments Brother 1 Alive Brother 2 Alive Father Alive Maternal Aunt Maternal Grandfather Maternal Grandmother Maternal Uncle Mother Alive Paternal Grandfather Paternal Grandmother Alive Social History Tobacco Use Types Packs/Day Years Used Date Smoking Tobacco: Never Smokeless Tobacco: Never Tobacco Cessation:Counseling Given: Yes Alcohol Use Standard Drinks/Week Comments Yes 0 (1 standard drink = 0.6 oz pur e alcohol) Comments No Sex and Gender Information Value Date Recorded Sex Assigned at Not on file Legal Sex Female 3:33 AM ANALYSIS TESTER Gender Identity Not on file Sexual Orientation Not on file Last Filed Vital Signs Vital Sign Reading Time Taken Comments Blood Pressure 122/74 12/26/2021 3:55 PM CDT Pulse 100 05/19/2020 12:21 PM ANALYSIS TESTER Temperature 36.8 C (98.3 F) 05/19/2020 12:21 PM ANALYSIS TESTER Respiratory Rate 14 05/19/2020 12:21 PM ANALYSIS TESTER Oxygen Saturation - - Inhaled Oxygen Concentration - - Weight 122 kg (269 lb) 12/26/2021 3:55 PM CDT Height 162.6 cm (5' 4 ) 12/26/2021 3:55 PM CDT Body Mass Index 46.17 12/26/2021 3:55 PM CDT Plan of Treatment Health Maintenance Due Date Last Done Comments HEPATITIS B VACCINES (1 of 3 - 19+ 3-dose series) 01/23/2007 CERVICAL CANCER SCREENING 04/02/2022 04/02/2019 INFLUENZA VACCINE (#1) 2024 0, 09/25/2018 Preventative Visit- Commercial 07/01/2024 04/25/2020, 04/02/2019, 09/25/2018 DTAP/TDAP/TD VACCINES (2 - T d or Tdap) 05/03/2032 05/03/2022 HPV VACCINES Aged Out No longer eligi ble based on patient's age to complete this topic Procedures Procedure Name Priority Date/Time Associated Diagnosis Comments CERV/VAG CYTO AGE BASED SCREEN PAP W CT/NG Routine 04/02/2019 11:48 AM CDT from Last 3 Months or Most Recently Relevant to Health Maintenance Results * CERV/VAG CYTO AGE BASED SCREEN PAP W CT/NG (04/02/2019 11:48 AM CDT) COMMENT (PAP): SEE COMMENT 9 5:39 PM CDT [facility] Comment: This order for age-based cervical cancer and STI screening follows ACOG guidelines(PB 168, 140, KHQ299). See individual assays for performing site location. CLINICAL INFORMATION Routine exam 04/07/2019 5:39 PM CDT [facility] LAST MENSTRUAL PERIOD [id number] 04/07/2019 5:39 PM CDT [facility] PREV PAP: INFORMATION NOT PROVIDED 04/07/2019 5:39 PM CDT [facility] PREV BX: INFORMATION NOT PROVIDED 04/07/2019 5:39 PM CDT [facility] SOURCE Endocervix 04/07/2019 5:39 PM CDT [facility] ADEQUACY: SEE COMMENT 04/07/2019 5:39 PM CDT [facility] Comment: Satisfactory for evaluation. Endocervical/transformation zone component present. PAP INTERP Negative for intraepithelial lesion or malignancy. 04/07/2019 5:39 PM CDT [facility] COMMENT This Pap test has been evaluated with computer assisted technology. 04/07/2019 5:39 PM CDT [facility] ENGINE RESEARCH ENGINEER: SEE COMMENT 2018 5:39 PM CDT [facility] Comment: MEF, CT(ASCP) CT screening location: [place] [address] [place] [address] EXPLANATORY NOTE SEE COMMENT 5:39 PM CDT [facility] Comment: EXPLANATORY NOTE: The Pap is a screening test for cervical cancer. It is not a diagnostic test and is subject to false negative and false positive results. It is most reliable when a satisfactory sample, regularly obtained, is submitted with relevant clinical findings and history, and when the Pap result is evaluated along with historic and current clinical information. HPV E6/E7 Not Detected Not Detected 04/07/2019 5:39 PM CDT [facility] Comment: This test was performed using the APTIMA HPV Assay ([employer] This assay detects E6/E7 viral messenger RNA (mRNA) from 14 high-risk HPV types (16,18,31,33,35,39,45,51,52,56,58,59,66,68). The analytical performance characteristics of this assay have been determined by [facility]. The modifications have not been cleared or approved by the FDA. This assay has been validated pursuant to the CLIA regulations and is used for clinical purposes. Genital SWAB OF ENDOCERVIX / Unknown Collection / Unknown 04/02/2019 11:48 AM CDT 04/06/2019 9:49 AM CDT Narrative [facility] - 04/07/2019 5:39 PM CDT Performing Organization Information: Site ID: [id number] [facility]: [facility] Address: [address] [facility] [place] [address] Director: Booker Parsons D.O., MPH Site ID: [id number] [facility] Address: [address] [place] [address] Director: Miles Zhang Jakob Mercado NP PATHOLOGY/CYTOLOGY ORDER XOCHITL Final Result Performing Organization Address City/State/[facility] Co de Phone Number [facility] [phone] [facility] from Last 3 Months or Most Recently Relevant to Health Maintenance Insurance [employer] Care Teams School Patrol Relationship Specialty Start Date End Date Volodymyr Lara MD [address] [address] PCP - General Family Practice 10/02/18
== END 2024-09-16 12:48 | disposition home or self-care (01) ==
PROVIDERS: Emergency Provider Registered Nurse; PCP Internal Medicine Infectious Disease
DX: J02.0 Streptococcal pharyngitis (principal)
CPT/HCPCS: 87880; 99213; G0463